=== PATIENT | female | born 1995 | race Caucasian/White ===

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

== ENCOUNTER 2019-09-26 19:57 | Emergency (ER) | payer SELFPAY ==
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
[2019-09-26 20:36] LABS: ACETAMINOPHEN <2.0 ug/mL
[2019-09-26 20:47] LABS: BLOOD UREA NITROGEN,BUN 7 mg/dL (7.0-18.0); CARBON DIOXIDE,CO2 22.4 mmol/L (21.0-32.0); CHLORIDE,CL 103 mmol/L (98-107); GLUCOSE RANDOM 99 mg/dL (74-106); POTASSIUM,K 3.8 mmol/L (3.5-5.1); SODIUM,NA 138 mmol/L (136-145)
[2019-09-26 22:26] VITALS: BP 117/67; PULSE 81
[2019-09-26] MEDS ORDERED: Ondansetron 4 MG Tab.DIS ONE (22:30)
[2019-09-26] MEDS ORDERED: Ondansetron 4 MG Tab PO ONE (22:30)
== END 2019-09-26 22:31 ==
LOC: MW.ED 19:57
DX: O99.89 Other specified diseases and conditions complicating pregnancy, childbirth and the puerperium (principal); R45.851 Suicidal ideations; O99.511 Diseases of the respiratory system complicating pregnancy, first trimester; J45.909 Unspecified asthma, uncomplicated; Z3A.10 10 weeks gestation of pregnancy
CPT/HCPCS: 36415; 80053; 80305; 80307; 81001; 81025; 83735; 84443; 85025; 93005; 99285; A9270; 99283

== ENCOUNTER 2019-12-23 12:45 | Emergency (ER) | payer SELFPAY ==
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
[2019-12-23 14:09] LABS: ACETAMINOPHEN <2.0 ug/mL; BLOOD UREA NITROGEN,BUN 11 mg/dL (7.0-18.0); CARBON DIOXIDE,CO2 24.1 mmol/L (21.0-32.0); CHLORIDE,CL 104 mmol/L (98-107); GLUCOSE RANDOM 85 mg/dL (74-106); POTASSIUM,K 3.9 mmol/L (3.5-5.1); SODIUM,NA 142 mmol/L (136-145)
[2019-12-23] MEDS ORDERED: Haloperidol Lactate 5 MG/ML SDV IM ONE (15:20)
[2019-12-23] MEDS ORDERED: LORazepam 2 MG/ML SDV IM ONE (15:46)
[2019-12-23] MEDS ORDERED: diphenhydrAMINE 50 MG/ML SDV IM ONE (15:46)
[2019-12-23 16:45] VITALS: BP 120/70; PULSE 104
== END 2019-12-23 16:00 ==
LOC: MW.ED 12:45
DX: R45.851 Suicidal ideations (principal); R45.850 Homicidal ideations; J45.909 Unspecified asthma, uncomplicated; F17.210 Nicotine dependence, cigarettes, uncomplicated
CPT/HCPCS: 36415; 80053; 80305; 80307; 81001; 81025; 83735; 84443; 85025; 93005; 96372; 99285; J1200; J1630; J2060; 99284

== ENCOUNTER 2022-07-17 18:51 | Emergency (ER) | payer MEDICAID ==
[2022-07-17 19:14] VITALS: BP 143/84; PULSE 76
== END 2022-07-17 19:45 | disposition home or self-care (01) ==
LOC: MW.ED 18:51
DX: Z02.89 Encounter for other administrative examinations (principal); J45.909 Unspecified asthma, uncomplicated; Z98.890 Other specified postprocedural states
CPT/HCPCS: 82947; 99283

== ENCOUNTER 2022-07-20 14:47 | Emergency (ER) | payer MEDICAID ==
[2022-07-20 15:15] VITALS: BP 133/86; PULSE 89
[2022-07-20 15:40] LABS: CARBON DIOXIDE,CO2 26.2 mmol/L (21.0-32.0); POTASSIUM,K 3.6 mmol/L (3.5-5.1)
[2022-07-20] MEDS: Haloperidol 5 MG Tab PO STA ×2 (16:11→16:12)
[2022-07-20 16:14] LABS: ACETAMINOPHEN <2.0 ug/mL
[2022-07-20 16:36] LABS: CORONAVIRUS COVID-19 NAA NEGATIVE (NEGATIVE); INFLUENZA A NAA NEGATIVE (NEGATIVE); INFLUENZA B NAA NEGATIVE (NEGATIVE)
== END 2022-07-20 17:50 ==
LOC: MW.ED 14:47
DX: F29 Unspecified psychosis not due to a substance or known physiological condition (principal); Z20.822 Contact with and (suspected) exposure to COVID-19
CPT/HCPCS: 0240U; 36415; 70450; 80053; 80143; 80179; 80305; 80307; 81001; 83735; 84439; 84443; 84481; 84702; 85025; 86592; 87086; 87389; 87651; 99285; 93005; A9270-GY

== ENCOUNTER 2022-09-01 10:26 | Emergency (ER) | payer MEDICAID, OTHER ==
[2022-09-01 11:22] VITALS: BP 120/66; PULSE 93
[2022-09-01 11:22] LABS: APPEARANCE,URINE CLEAR; BILIRUBIN,URINE NEGATIVE (NEGATIVE); COLOR,URINE YELLOW; GLUCOSE,URINE NEGATIVE (NEGATIVE); KETONES,URINE NEGATIVE (NEGATIVE); LEUKOCYTE ESTERASE,URINE TRACE (NEGATIVE); NITRITE,URINE NEGATIVE (NEGATIVE); OCCULT BLOOD,URINE MODERATE (NEGATIVE); PROTEIN,URINE NEGATIVE (NEGATIVE); UROBILINOGEN,URINE 0.2 EU/dL (<2.0)
[2022-09-01 11:36] LABS: EPITHELIAL CELLS,URINE FEW (NONE-FEW); RBC,URINE 0-3 (0-2/HPF); WBC,URINE 0-1 (0-5/HPF)
[2022-09-01 11:37] LABS: BACTERIA,URINE FEW (NEGATIVE); MUCUS,URINE LIGHT (NONE-MOD)
[2022-09-01] MEDS ORDERED: Polyethylene Glycol 3350 Powder 17 GM Packet PO ONE (12:21)
== END 2022-09-01 12:53 | disposition home or self-care (01) ==
LOC: MW.ED 10:26
DX: K59.00 Constipation, unspecified (principal); J45.909 Unspecified asthma, uncomplicated
CPT/HCPCS: 74019; 81001; 81025; 87086; 99283; A9270; 99282

== ENCOUNTER 2023-12-11 23:46 | Emergency (ER) | payer MEDICAID, OTHER ==
[2023-12-12 00:07] VITALS: BP 125/80; PULSE 80
== END 2023-12-12 01:39 ==
LOC: MW.ED 23:46
DX: T81.9XXA Unspecified complication of procedure, initial encounter (principal); S00.93XA Contusion of unspecified part of head, initial encounter; Z75.8 Other problems related to medical facilities and other health care; W22.8XXA Striking against or struck by other objects, initial encounter
CPT/HCPCS: 99283

== ENCOUNTER 2024-02-25 12:07 | Emergency (ER) | payer MEDICAID, OTHER ==
[2024-02-25 12:56] LABS: APPEARANCE,URINE CLEAR; BILIRUBIN,URINE NEGATIVE (NEGATIVE); COLOR,URINE YELLOW; GLUCOSE,URINE NEGATIVE (NEGATIVE); KETONES,URINE NEGATIVE (NEGATIVE); LEUKOCYTE ESTERASE,URINE SMALL (NEGATIVE); NITRITE,URINE NEGATIVE (NEGATIVE); OCCULT BLOOD,URINE NEGATIVE (NEGATIVE); PROTEIN,URINE NEGATIVE (NEGATIVE); UROBILINOGEN,URINE 0.2 EU/dL (<2.0)
[2024-02-25 13:05] VITALS: BP 139/79; PULSE 87
[2024-02-25 13:11] LABS: BACTERIA,URINE FEW (NEGATIVE); EPITHELIAL CELLS,URINE FEW (NONE-FEW); RBC,URINE 0-1 (0-2/HPF)
== END 2024-02-25 15:01 | disposition left against medical advice (07) ==
LOC: MW.ED 12:07
DX: O26.891 Other specified pregnancy related conditions, first trimester (principal); R82.71 Bacteriuria; Z3A.00 Weeks of gestation of pregnancy not specified; Z75.8 Other problems related to medical facilities and other health care
CPT/HCPCS: 76801; 76801-26; 81001; 81025; 87086; 99283; 99284

== ENCOUNTER 2024-06-10 10:54 | Emergency (ER) | payer SELFPAY ==
[2024-06-10] MEDS ORDERED: Sodium Chloride 0.9% 10 ML Syringe FLUSH PRN (11:00)
[2024-06-10] MEDS ORDERED: Sodium Chloride 0.9% 2.5 ML Syringe FLUSH PRN (11:00)
[2024-06-10 11:35] LABS: BASOPHILS ABSOLUTE AUTO 0.05 K/uL (0.00-0.20); BASOPHILS PERCENT AUTO 0.3 % (0.0-1.0); HEMATOCRIT 38.6 % (37.0-47.0); HEMOGLOBIN 13.2 g/dL (12.0-16.0); IMMATURE GRAN ABSOLUTE AUTO 0.04 K/uL (0.00-0.05); IMMATURE GRAN PERCENT AUTO 0.2 % (0.0-0.4); LYMPHOCYTES ABSOLUTE AUTO 0.61 K/uL (1.00-4.80); LYMPHOCYTES PERCENT AUTO 3.5 % (24.0-44.0); MEAN CORPUSCULAR HEMOGLOBIN 29.7 pg (28.0-32.0); MEAN CORPUSCULAR HGB CONC 34.2 g/dL (32.0-36.0); MEAN CORPUSCULAR VOLUME 86.7 fL (83.0-99.0); MEAN PLATELET VOLUME 8.6 fL (9.4-12.3); MONOCYTES ABSOLUTE AUTO 0.97 K/uL (0.00-0.80); MONOCYTES PERCENT AUTO 5.5 % (0.0-8.0); NEUTROPHILS ABSOLUTE AUTO 15.87 K/uL (1.80-7.70); NEUTROPHILS PERCENT AUTO 90.5 % (41.0-71.0); PLATELET COUNT,PLT 216 K/uL (150-400); RED BLOOD CELL COUNT 4.45 M/uL (4.10-5.30); WHITE BLOOD CELL COUNT,WBC 17.54 K/uL (3.9-11.3)
[2024-06-10 11:38] LABS: APPEARANCE,URINE CLEAR; BILIRUBIN,URINE NEGATIVE (NEGATIVE); COLOR,URINE YELLOW; GLUCOSE,URINE NEGATIVE (NEGATIVE); KETONES,URINE TRACE mg/dL (NEGATIVE); LEUKOCYTE ESTERASE,URINE NEGATIVE (NEGATIVE); NITRITE,URINE NEGATIVE (NEGATIVE); OCCULT BLOOD,URINE LARGE (NEGATIVE); PH,URINE 5.5 (5.0-8.0); PROTEIN,URINE NEGATIVE (NEGATIVE); UROBILINOGEN,URINE 0.2 EU/dL (<2.0)
[2024-06-10 11:48] LABS: BACTERIA,URINE FEW (NEGATIVE); EPITHELIAL CELLS,URINE FEW (NONE-FEW); MUCUS,URINE LIGHT (NONE-MOD); WBC,URINE 0-2 (0-5/HPF)
[2024-06-10 12:05] LABS: A/G RATIO 1.2 (0.9-1.6); ALBUMIN 3.9 g/dL (3.4-5.0); BILIRUBIN TOTAL 0.6 mg/dL (0.2-1.0); CALCIUM 9.1 mg/dL (8.5-10.1); CARBON DIOXIDE,CO2 25.1 mmol/L (21.0-32.0); CREATININE 0.8 mg/dL (0.6-1.0); EST CRCL DRUG DOSING (CG) 95.89 mL/min; POTASSIUM,K 3.6 mmol/L (3.5-5.1); PROTEIN TOTAL,TP 7.1 g/dL (6.4-8.2)
[2024-06-10] MEDS: Iopamidol 755 MG/ML 500 ML Multipack Bottle IVPUSH STA (15:05)
[2024-06-10] MEDS: Acetaminophen 325 MG Tab PO ONE (15:10)
[2024-06-10 15:12] VITALS: BP 122/77; PULSE 78
== END 2024-06-10 16:08 | disposition home or self-care (01) ==
LOC: MW.ED 10:54
DX: O20.9 Hemorrhage in early pregnancy, unspecified (principal); O99.891 Other specified diseases and conditions complicating pregnancy; R10.9 Unspecified abdominal pain; J45.909 Unspecified asthma, uncomplicated; F17.210 Nicotine dependence, cigarettes, uncomplicated; Z75.8 Other problems related to medical facilities and other health care; Z3A.00 Weeks of gestation of pregnancy not specified
CPT/HCPCS: 36415; 74177; 76817; 80053; 81001; 81025; 83690; 84702; 85025; 86900; 86901; 99284; A9270; Q9967; 99283